=== PATIENT | female | born 1990 | race Caucasian/White ===

== ENCOUNTER 2016-10-31 15:42 | Emergency (ER) | payer MEDICAID, OTHER ==
[~2016-10-31] VITALS: Ht 170.2 cm; Wt 49.9 kg
[~2016-10-31 15:42] MED LIST: CIPR500T89 PO; ZOFR4TAB3 PO
[2016-10-31 15:43] VITALS: BP 106/67
--- NOTE | 2016-10-31 16:22 | ED PDOC ---
Post-Departure Follow-Up PT STATES POSITIVE TEST IN THE LAST WEEK OR SO AND SOON SHE TESTED POSITIVE AT HOME, SHE WENT TO THE ER TO BE SEEN. STATES WAS TOLD AT THAT TIME THAT SHE HAS A UTI. WAS PLACED ON KEFLEX AND DID NOT START TAKING THESE MEDS UNTIL YESTERDAY. STATES STILL HAVING DYSURIA. PRESENTS TO THE ER TODAY STATING SHE WAS BLEEDING WHEN SHE URINATED EARLIER TODAY. PT DENIES PAIN. DOES NOT CURRENTLY HAVE AN OB-ASSEMBLER CONVERTIBLE TOP PROVIDER. STATES, "I'M JUST BEING CAUTIOUS." BALJIT GILLESPIE PA-C Oct 31, 2016 16:22
--- NOTE | 2016-11-01 09:46 | REP ---
FIRST TRIMESTER ULTRASOUND: HISTORY: Bleeding. A single intrauterine is present. Mesick-rump length is 0.2 cm, corresponding to a gestational age of 5 weeks 5 days. heart rate is 97 beats per minute. There is no subchorionic hemorrhage. The adnexa and cul-de-sac are normal in appearance. IMPRESSION: A single intrauterine is present with a gestational age by ultrasound of 5 weeks 5 days. A repeat examination in 19-20 weeks is recommended for further evaluation. Signed by Albert Pappas MD 11/01/2016 10:02 A
== END 2016-10-31 17:03 | disposition home or self-care (01) ==
LOC: M ED 16:11
DX: O20.9 Hemorrhage in early pregnancy, unspecified (principal); O99.341 Other mental disorders complicating pregnancy, first trimester; F41.9 Anxiety disorder, unspecified; Z3A.01 Less than 8 weeks gestation of pregnancy

== ENCOUNTER → 2017-03-01 | Outpatient (CLI) | payer MEDICAID, OTHER ==
[~2017-03-01] MED LIST changes: +CIPR-249 PO; -CIPR500T89 PO
--- NOTE | 2017-03-01 22:00 | REP ---
Clinical: Anatomical evaluation. Comparison: 10/31/2016 . Findings: Examination demonstrates a single live intrauterine in variable presentation. motion is identified by technologist. Placenta is noted posteriorly and grade zero without evidence for placenta previa or abruption. Amniotic fluid volume is normal. Cervix measures 3.4 cm in length and appears closed. No evidence for nuchal cord. Gestational age by LMP 23 weeks 0 day with MAG 06/28/2017 . Gestational age by current measurements 23 weeks 1 day with MAG 06/27/2017 . FHR equals 154 beats per minute. BPD 5.3 cm 22 weeks 1 day HC 21.1 cm 23 weeks 1 day AC 18.9 cm 23 weeks 5 days FL 4.1 cm 23 weeks 1 day HL 3.7 cm 22 weeks 5 days HC/AC ratio 1.11 Estimated weight 592 grams ( 55th percentile). Anatomical assessment demonstrates normal structures including cranium, choroid plexus, cavum, cerebellum/posterior fossa, facial features, lungs, four-chamber heart/right ventricular outflow tract, diaphragm, stomach, cord insertion/three-vessel cord, kidneys/bladder, spine, and extremities. Impression: Single live intrauterine in variable presentation demonstrating appropriate interval growth. Anatomical assessment is essentially complete and normal (limited evaluation of the left cardiac ventricular outflow tract). Signed by Zack Mcnamara MD 03/01/2017 09:50 P
== END ==
LOC: M RAD 13:39
PROVIDERS: ATTEND Advanced Practice Midwife
DX: Z36 Encounter for antenatal screening of mother (principal); Z3A.23 23 weeks gestation of pregnancy

== ENCOUNTER → 2017-04-27 | Outpatient (CLI) | payer OTHER ==
--- NOTE | 2017-04-27 17:36 | REP ---
OB ULTRASOUND: Real-time sonographic evaluation of the gravid uterus is performed. There is a single living intrauterine gestation. The estimated gestational age is 31 weeks 1 day. EDC 06/28/2017. Today's measurements indicate appropriate growth. BPD 75 mm = 30 weeks 1 days, at the 35th percentile. HC 287 mm = 31 weeks 4 days, at the 57th percentile. AC 270 mm = 31 weeks 1 day, at the 50th percentile. Femur length 57 mm = 29 weeks 6 days, at the 24th percentile. HC/AC ratio 1.06 within normal range. Estimated weight 1619 grams, 34th percentile. Cervix is closed and measures 3.9 cm in length. heart rate 139 beats per minute. Amniotic fluid within normal limits. MAICO 12.0 within normal range of 8.8-23.8. SD ratio 3.71, slightly above normal range of 2.5 to 3.5. RI 0.73 within normal range. Visualized anatomy includes lateral ventricle, posterior fossa, upper lip, stomach, cord insertion, three-vessel cord, kidneys, and bladder which are grossly unremarkable. position is breach. Placenta is posterior and fundal and grade 2 with no previa or abruption. Signed by David Payne MD 04/28/2017 04:39 P
== END ==
LOC: M RAD 15:44
PROVIDERS: ATTEND Advanced Practice Midwife
DX: Z36.9 Encounter for antenatal screening, unspecified (principal); Z3A.31 31 weeks gestation of pregnancy

== ENCOUNTER 2017-05-24 04:07 | Inpatient (IN) | payer OTHER ==
[~2017-05-24] VITALS: Ht 170.2 cm; Wt 61.5 kg
[2017-05-24] VITALS (19 sets, daily range): BP systolic 99–134; BP diastolic 57–80
[2017-05-24] MEDS ORDERED: PRENTAB9 PO (04:31)
[2017-05-24 08:40] LABS: MEAN CORPUSCULAR HEMOGLOBIN 32.3 pg (27.0-33.0); MEAN CORPUSCULAR HGB CONC 34.3 g/dl (32.0-36.5); MEAN CORPUSCULAR VOLUME 94.3 fl (80.0-96.0); PLATELET COUNT, AUTOMATED 171 10^3/uL (150-450); RED CELL DISTRIBUTION WIDTH 13.2 % (11.5-14.5); WHITE BLOOD COUNT 11.2 10^3/uL (4.0-10.0)
[2017-05-24] MEDS: PRENATAL VITAMINS CHEWABLE TABLET PO SCH (09:00)
[2017-05-24 10:14] LABS: INR 1.01
[2017-05-24] MEDS ORDERED: ONDANSETRON 4MG/2ML VIAL (J2405) IV SCH (10:15)
[2017-05-24] MEDS ORDERED: PENICILLIN G POTASSIUM IV 5 MU in D5W MINI-BAG PLUS 100 ML IV STA (10:15)
[2017-05-24] MEDS ORDERED: LACTATED RINGER'S 1000 ML IV STA (10:15)
[2017-05-24] MEDS ORDERED: FENTANYL 2MCG/ML ROPIVACAINE 0.2% IN 0.9% NACL 200ML IVBAG As Ordered ONE (11:31)
[2017-05-24] MEDS ORDERED: OXYTOCIN 30 UNITS IN 0.9% NaCl 500ML IV BAG (J2590) As Ordered ONE (11:37)
[2017-05-24] MEDS ORDERED: OXYTOCIN DRIP 30 UNITS in APPROPRIATE DILUENT 1 EA IV SCH (12:31)
[2017-05-24] MEDS ORDERED: DIBUCAINE 1% OINTMENT 30GM TOP PRN (12:45)
[2017-05-24] MEDS ORDERED: RHOGAM 300 MCG (1500 IU) INJ (J2790) IM SCH (12:45)
[2017-05-24] MEDS ORDERED: ONDANSETRON 4MG/2ML VIAL (J2405) IV PRN (12:45)
[2017-05-24] MEDS ORDERED: MEASLES,MUMPS,RUBELLA VACCINE INJ (MMR-II) (90707) SC SCH (12:45)
[2017-05-24] MEDS ORDERED: PROMETHAZINE 25 MG TAB PO PRN (12:45)
[2017-05-24] MEDS ORDERED: DOCUSATE SODIUM 100 MG CAP PO PRN (12:45)
[2017-05-24] MEDS ORDERED: ACETAMINOPHEN 500 MG TAB PO PRN (12:45)
[2017-05-24 12:48] LABS: CORD GAS ABE A -4.9; CORD GAS ABE V -4.2; CORD GAS HCO3 A 20.2 MEQ/L; CORD GAS HCO3 V 20.6 MEQ/L; CORD GAS O2 SAT A 67.6 %; CORD GAS O2 SAT V 58.3 %; CORD GAS PCO2 A 38.3 mmHg; CORD GAS PCO2 V 37.1 mmHg; CORD GAS PH A 7.341 UNITS; CORD GAS PH V 7.362 UNITS; CORD GAS PO2 A 26.4 mmHg; CORD GAS PO2 V 21.8 mmHg; CORD GAS SBC A 19.7 MEQ/L; CORD GAS SBC V 20.1 MEQ/L; CORD GAS TCO2 A 21.4 MEQ/L; CORD GAS TCO2 V 21.7 MEQ/L
[2017-05-24] MEDS ORDERED: PENICILLIN G POTASSIUM IV 2.5 MU in APPROPRIATE DILUENT 1 EA IV SCH (14:30)
[2017-05-24] MEDS: IBUPROFEN 800 MG TAB PO PRN (19:59)
[2017-05-25 06:00] VITALS: BP 86/50
[2017-05-25] MEDS: PRENATAL VITAMINS CHEWABLE TABLET PO SCH (09:30)
[2017-05-25] MEDS: IBUPROFEN 800 MG TAB PO PRN (09:33)
[2017-05-25 09:46] VITALS: BP 108/69
[2017-05-25 18:13] VITALS: BP 115/67
[2017-05-26] MEDS: PRENATAL VITAMINS CHEWABLE TABLET PO SCH (08:23)
[2017-05-26] MEDS ORDERED: ACET50TA PO (11:38)
[2017-05-26] MEDS ORDERED: IBUP-1114 PO (11:38)
== END 2017-05-26 17:10 | disposition home or self-care (01) | DRG 560 ==
LOC: M LDO 04:07 → M LDI 10:17 → M OBS 14:00
PROVIDERS: ADMIT Obstetrics & Gynecology; ATTEND Obstetrics & Gynecology
PROC: 10E0XZZ Delivery of Products of Conception, External Approach (ICD-10-PCS; principal; 2017-05-24)
DX: O60.14X0 Preterm labor third trimester with preterm delivery third trimester, not applicable or unspecified (principal); F17.210 Nicotine dependence, cigarettes, uncomplicated; Z37.0 Single live birth; Z3A.35 35 weeks gestation of pregnancy; O99.334 Smoking (tobacco) complicating childbirth

== ENCOUNTER 2017-08-30 15:07 | Outpatient (RCR) | payer OTHER | END 2017-09-01 | LOC: M PT 15:07 | DX: Z51.89 Encounter for other specified aftercare (principal); M26.609 Unspecified temporomandibular joint disorder, unspecified side | CPT/HCPCS: 97162 ==

== ENCOUNTER → 2017-08-30 | Outpatient (CLI) | payer MEDICAID | LOC: M OUTALCOH 10:32 | DX: Z03.89 Encounter for observation for other suspected diseases and conditions ruled out (principal) ==

== ENCOUNTER 2017-09-09 13:03 | Outpatient (RCR) | payer MEDICAID | END 2017-10-02 | LOC: M OUTALCOH 09-15 14:30 | DX: F12.10 Cannabis abuse, uncomplicated (principal); F17.200 Nicotine dependence, unspecified, uncomplicated ==

== ENCOUNTER 2017-10-05 16:00 | Outpatient (RCR) | payer MEDICAID | END 2017-11-01 | LOC: M OUTALCOH 10-08 14:00 | DX: F12.10 Cannabis abuse, uncomplicated (principal); F17.200 Nicotine dependence, unspecified, uncomplicated ==

== ENCOUNTER 2017-11-02 16:12 | Outpatient (RCR) | payer MEDICAID | END 2017-12-02 | LOC: M OUTALCOH 16:12 | DX: F12.10 Cannabis abuse, uncomplicated (principal); F17.200 Nicotine dependence, unspecified, uncomplicated ==

== ENCOUNTER 2017-12-08 09:41 | Emergency (ER) | payer OTHER, MEDICAID ==
[2017-12-08] MEDS: NS 1,000 ML IV (10:41)
[2017-12-08] MEDS: METOCLOPRAMIDE INJ 10MG/2ML VIAL (J2765) IV (10:41)
[2017-12-08] MEDS: diphenhydrAMINE INJ 50MG/ML VIAL (J1200) IV (10:41)
[2017-12-08] MEDS: KETOROLAC 30 MG/ML VIAL (J1885) IV (10:41)
[2017-12-08] MEDS: ADACEL/BOOSTRIX VACCINE (DIPHTH/PERTUSS/ACELL/TETANUS)0.5ML SYR (90715) IM (10:43)
== END 2017-12-08 11:38 | disposition home or self-care (01) ==
LOC: M ED 09:41
DX: S01.01XA Laceration without foreign body of scalp, initial encounter (principal); S06.0X1A Concussion with loss of consciousness of 30 minutes or less, initial encounter; G43.909 Migraine, unspecified, not intractable, without status migrainosus; W22.8XXA Striking against or struck by other objects, initial encounter; Y92.099 Unspecified place in other non-institutional residence as the place of occurrence of the external cause; Y93.9 Activity, unspecified; Y99.9 Unspecified external cause status; Z79.899 Other long term (current) drug therapy
CPT/HCPCS: J1200

== ENCOUNTER 2017-12-22 15:24 | Outpatient (RCR) | payer MEDICAID | END 2018-01-01 | LOC: M OUTALCOH 15:24 | DX: F12.10 Cannabis abuse, uncomplicated (principal); F17.200 Nicotine dependence, unspecified, uncomplicated ==

== ENCOUNTER → 2017-12-24 | Outpatient (CLI) | payer MEDICAID | LOC: M WUC 16:51 | DX: M79.671 Pain in right foot (principal) | CPT/HCPCS: 73620 ==

== ENCOUNTER 2018-01-18 16:00 | Outpatient (RCR) | payer MEDICAID | END 2018-02-01 | LOC: M OUTALCOH 16:00 | DX: F12.10 Cannabis abuse, uncomplicated (principal); F17.200 Nicotine dependence, unspecified, uncomplicated ==

== ENCOUNTER 2018-08-04 09:22 | Emergency (ER) | payer MEDICAID, OTHER ==
[~2018-08-04] VITALS: Ht 170.2 cm; Wt 51.8 kg
[2018-08-04 09:22] VITALS: BP 116/79
[~2018-08-04 09:22] MED LIST changes: +IBUP-1114 PO; +MAPA500T2 PO; +PRENTAB9 PO; +PREVTAB2; +SERT25TA88; +ZOFR4TAB14 PO; -ZOFR4TAB3 PO
--- NOTE | 2018-08-04 10:06 | REP ---
Clinical: Trauma. Technique: Frontal view of the chest with four views of the right hemithorax. Findings: Frontal view of the chest demonstrates no acute cardiopulmonary process. Multiple views of the right hemithorax demonstrates no obvious acute rib fracture or pathology. Impression: Normal right rib series. No obvious right rib fracture identified. Electronically Signed by Zack Mcnamara MD 08/04/2018 09:58 A
[2018-08-04] MEDS ORDERED: IBUPROFEN 800 MG TAB PO ONE (10:15)
[2018-08-04] MEDS ORDERED: IBUP-1022 PO (10:19)
== END 2018-08-04 10:27 | disposition home or self-care (01) ==
LOC: M ED 09:22
DX: S20.211A Contusion of right front wall of thorax, initial encounter (principal); W00.0XXA Fall on same level due to ice and snow, initial encounter; Y92.410 Unspecified street and highway as the place of occurrence of the external cause; F33.9 Major depressive disorder, recurrent, unspecified; F41.9 Anxiety disorder, unspecified; K21.9 Gastro-esophageal reflux disease without esophagitis; G43.909 Migraine, unspecified, not intractable, without status migrainosus; F17.210 Nicotine dependence, cigarettes, uncomplicated

== ENCOUNTER 2018-09-07 16:14 | Emergency (ER) | payer OTHER ==
[~2018-09-07] VITALS: Ht 170.2 cm; Wt 50.0 kg
[~2018-09-07 16:14] MED LIST changes: +IBUP-1022 PO
[2018-09-07] MEDS ORDERED: SERT50TA PO (16:34)
[2018-09-07 16:47] LABS: ABG HCO3 13.1 MEQ/L (22.0-26.0); ABG O2 SATURATION 99.1 % (95.0-99.0); ABG PARTIAL PRESSURE O2 123.5 mmHg (75.0-100.0); ABG STANDARD HCO3 21.2 MEQ/L (22.0-26.0); ABG TOTAL CO2 13.5 MEQ/L (22.0-29.0)
[2018-09-07 16:51] LABS: ABG PARTIAL PRESSURE CO2 13.2 mmHg (35.0-45.0); ABG pH (ARTERIAL) 7.615 UNITS (7.350-7.450)
[2018-09-07] MEDS ORDERED: LORazepam 2 MG/ML VIAL (J2060) IV STA (16:53)
[2018-09-07 17:22] LABS: BASO % 0.2 % (0.0-1.0); HEMATOCRIT 44.2 % (36.0-47.0); HEMOGLOBIN 15.2 g/dl (12.0-15.5); LYMPH # 0.8 10^3/uL (1.5-6.5); LYMPH % 7.7 % (24.0-44.0); MEAN CORPUSCULAR HEMOGLOBIN 31.7 pg (27.0-33.0); MEAN CORPUSCULAR HGB CONC 34.4 g/dl (32.0-36.5); MEAN CORPUSCULAR VOLUME 92.3 fl (80.0-96.0); MONO # 0.3 10^3/uL (0.0-0.8); MONO % 2.5 % (0.0-5.0); NEUTROPHILS # 8.8 10^3/uL (1.8-7.7); NEUTROPHILS % 89.4 % (36.0-66.0); PLATELET COUNT, AUTOMATED 202 10^3/uL (150-450); RED BLOOD COUNT 4.79 10^6/uL (4.00-5.40); WHITE BLOOD COUNT 9.8 10^3/uL (4.0-10.0)
[2018-09-07 17:43] LABS: HCG, SERUM QUALITATIVE NEGATIVE (NEGATIVE)
[2018-09-07 17:46] LABS: ALBUMIN 4.6 GM/DL (3.2-5.2); ALT/SGPT 22 U/L (12-78); BILIRUBIN,DIRECT 0.3 MG/DL (0.0-0.2); BILIRUBIN,TOTAL 1.3 MG/DL (0.2-1.0); BLOOD UREA NITROGEN 21 MG/DL (7-18); CARBON DIOXIDE LEVEL 22 MEQ/L (21-32); CHLORIDE LEVEL 103 MEQ/L (98-107); CREATININE FOR GFR 0.92 MG/DL (0.55-1.30); GLOMERULAR FILTRATION RATE > 60.0 (>60); GLUCOSE, FASTING 96 MG/DL (70-100); LIPASE 58 U/L (73-393); MAGNESIUM LEVEL 1.6 MG/DL (1.8-2.4); POTASSIUM SERUM 3.5 MEQ/L (3.5-5.1); SODIUM LEVEL 136 MEQ/L (136-145); TOTAL PROTEIN 8.7 GM/DL (6.4-8.2)
[2018-09-07] MEDS ORDERED: NS 1,000 ML IV ONE (18:30)
[2018-09-07] MEDS ORDERED: MAG SULF 1GM/100ML (MAG RUN) 1 GM in APPROPRIATE DILUENT 1 EA IV ONE (18:30)
--- NOTE | 2018-09-07 20:54 | ECGEPIP ---
Stationary ECG Study [facility] - ED Test Date: 2018-09-07 Pat Name: CORBIN BRICEÑO Department: Room: - Gender: F Final Inspector: TC : 1990 Requested By: Mary Anne Yeager Order Number: [id number] Reading MD: Davion Rodarte Measurements Intervals [place] Rate: 63 P: 24 OR: 123 QRS: 84 QRSD: 84 T: 70 QT: 460 QTc: 472 Interpretive Statements SINUS RHYTHM WITH SINUS ARRHYTHMIA Nonspecific ST-T wave abnormalities Similar to tracing done 10-01-15 Electronically Signed On 09-07-2018 20:53:56 EST by Davion Rodarte
[2018-09-07 23:18] LABS: AMPHETAMINES LEVEL URINE NEGATIVE (NEGATIVE); BARBITURATES URINE NEGATIVE (NEGATIVE); BENZODIAZEPINES URINE NEGATIVE (NEGATIVE); CANNABINOIDS URINE POSITIVE (NEGATIVE); COCAINE METABOLITE URINE NEGATIVE (NEGATIVE); METHADONE URINE NEGATIVE (NEGATIVE); OPIATES URINE NEGATIVE (NEGATIVE); PHENCYCLIDINE URINE NEGATIVE (NEGATIVE)
[2018-09-07 23:42] VITALS: BP 113/67
== END 2018-09-07 23:51 | disposition home or self-care (01) ==
LOC: EDBD 16:14 → M ED 16:14
DX: R06.4 Hyperventilation (principal); F12.10 Cannabis abuse, uncomplicated; K21.9 Gastro-esophageal reflux disease without esophagitis; F41.0 Panic disorder [episodic paroxysmal anxiety]; Z87.891 Personal history of nicotine dependence
CPT/HCPCS: 80048; 80076; 80307; 82803; 83690; 83735; 84703; 85025; 93005; 93041; 96374; 96375; 99285; J2060; J3475

== ENCOUNTER 2018-10-25 10:14 | Emergency (ER) | payer OTHER ==
[~2018-10-25] VITALS: Ht 170.2 cm; Wt 50.9 kg
[2018-10-25 10:14] VITALS: BP 97/62
[~2018-10-25 10:14] MED LIST changes: +SERT-141 PO
[2018-10-25] MEDS ORDERED: METOCLOPRAMIDE INJ 10MG/2ML VIAL (J2765) IV ONE (11:00)
[2018-10-25] MEDS ORDERED: NS 1,000 ML IV ONE (11:00)
[2018-10-25 11:33] LABS: BASO # 0.1 10^3/uL (0.0-0.2); BASO % 0.7 % (0.0-1.0); EOS % 0.6 % (0.0-3.0); HEMATOCRIT 41.9 % (36.0-47.0); HEMOGLOBIN 14.2 g/dl (12.0-15.5); LYMPH # 1.8 10^3/uL (1.5-6.5); LYMPH % 26.7 % (24.0-44.0); MEAN CORPUSCULAR HEMOGLOBIN 32.3 pg (27.0-33.0); MEAN CORPUSCULAR HGB CONC 33.9 g/dl (32.0-36.5); MEAN CORPUSCULAR VOLUME 95.4 fl (80.0-96.0); MONO # 0.3 10^3/uL (0.0-0.8); NEUTROPHILS # 4.5 10^3/uL (1.8-7.7); NEUTROPHILS % 66.6 % (36.0-66.0); PLATELET COUNT, AUTOMATED 188 10^3/uL (150-450); RED BLOOD COUNT 4.39 10^6/uL (4.00-5.40); WHITE BLOOD COUNT 6.8 10^3/uL (4.0-10.0)
[2018-10-25 12:24] LABS: ALT/SGPT 20 U/L (12-78); BILIRUBIN,TOTAL 0.8 MG/DL (0.2-1.0); BLOOD UREA NITROGEN 12 MG/DL (7-18); CALCIUM LEVEL 8.9 MG/DL (8.5-10.1); CARBON DIOXIDE LEVEL 27 MEQ/L (21-32); CHLORIDE LEVEL 102 MEQ/L (98-107); CREATININE FOR GFR 0.62 MG/DL (0.55-1.30); GLOMERULAR FILTRATION RATE > 60.0 (>60); GLUCOSE, FASTING 80 MG/DL (70-100); HCG, SERUM QUANTITATIVE 32362 MIU/ML; LIPASE 66 U/L (73-393); POTASSIUM SERUM 4.3 MEQ/L (3.5-5.1); SODIUM LEVEL 137 MEQ/L (136-145); TOTAL PROTEIN 7.5 GM/DL (6.4-8.2)
== END 2018-10-25 12:15 | disposition left against medical advice (07) ==
LOC: M ED 10:14
DX: O21.9 Vomiting of pregnancy, unspecified (principal); O99.330 Smoking (tobacco) complicating pregnancy, unspecified trimester; F17.210 Nicotine dependence, cigarettes, uncomplicated; Z3A.00 Weeks of gestation of pregnancy not specified
CPT/HCPCS: 80053; 83690; 84702; 85025; 86850; 86900; 86901; 96374; 99283; J2765

== ENCOUNTER 2018-11-07 19:22 | Emergency (ER) | payer OTHER ==
[~2018-11-07] VITALS: Ht 170.2 cm; Wt 60.4 kg
[2018-11-07] MEDS ORDERED: NS 1,000 ML IV ONE ×2 (21:15→22:30)
[2018-11-07 21:25] LABS: BASO # 0.1 10^3/uL (0.0-0.2); BASO % 0.4 % (0.0-1.0); EOS % 0.1 % (0.0-3.0); LYMPH # 1.7 10^3/uL (1.5-6.5); LYMPH % 15.2 % (24.0-44.0); MEAN CORPUSCULAR HEMOGLOBIN 32.1 pg (27.0-33.0); MEAN CORPUSCULAR HGB CONC 34.1 g/dl (32.0-36.5); MONO # 0.4 10^3/uL (0.0-0.8); MONO % 3.9 % (0.0-5.0); NEUTROPHILS # 9.1 10^3/uL (1.8-7.7); PLATELET COUNT, AUTOMATED 209 10^3/uL (150-450); RED BLOOD COUNT 4.36 10^6/uL (4.00-5.40); WHITE BLOOD COUNT 11.3 10^3/uL (4.0-10.0)
[2018-11-07 21:30] LABS: AMPHETAMINES LEVEL URINE NEGATIVE (NEGATIVE); BARBITURATES URINE NEGATIVE (NEGATIVE); BENZODIAZEPINES URINE NEGATIVE (NEGATIVE); CANNABINOIDS URINE POSITIVE (NEGATIVE); COCAINE METABOLITE URINE NEGATIVE (NEGATIVE); METHADONE URINE NEGATIVE (NEGATIVE); OPIATES URINE NEGATIVE (NEGATIVE); PHENCYCLIDINE URINE NEGATIVE (NEGATIVE)
[2018-11-07 22:04] LABS: BLOOD UREA NITROGEN 11 MG/DL (7-18); CALCIUM LEVEL 9.2 MG/DL (8.5-10.1); CARBON DIOXIDE LEVEL 25 MEQ/L (21-32); CHLORIDE LEVEL 104 MEQ/L (98-107); CPK CREATINE PHOSPHOKINASE 68 U/L (26-192); CREATININE FOR GFR 0.62 MG/DL (0.55-1.30); ETHYL ALCOHOL (ETHANOL) < 0.003 % (0.000-0.010); GLOMERULAR FILTRATION RATE > 60.0 (>60); GLUCOSE, FASTING 85 MG/DL (70-100); HCG, SERUM QUANTITATIVE 121111 MIU/ML; MB/CK RELATIVE INDEX 3.38 (< OR =4); POTASSIUM SERUM 3.8 MEQ/L (3.5-5.1); SODIUM LEVEL 137 MEQ/L (136-145); THYROID STIMULATING HORMONE 0.237 uIU/ML (0.358-3.740); TROPONIN I < 0.02 NG/ML (< 0.10)
--- NOTE | 2018-11-07 22:20 | ECGEPIP ---
Stationary ECG Study [facility] - ED Test Date: 2018-11-07 Pat Name: CORBIN BRICEÑO Department: Room: - Gender: F Quality Process Lead: MAXWELL : 1990 Requested By: CLARISSA DOUGLASS [facility] Order Number: [id number] Reading MD: Parish Alanis Measurements Intervals [place] Rate: 58 P: 44 KS: 121 QRS: 78 QRSD: 90 T: 3 QT: 417 QTc: 411 Interpretive Statements SINUS BRADYCARDIA WITH MARKED SINUS ARRHYTHMIA INCOMPLETE RIGHT BUNDLE BRANCH BLOCK NONSPECIFIC ST & T-WAVE ABNORMALITY SIMILAR TO 09/07/18 Electronically Signed On 11-07-2018 22:19:57 EDT by Parish Alanis
[2018-11-07] MEDS ORDERED: LACTULOSE 20 GM/30 ML SYRUP UD PO ONE (22:30)
[2018-11-07] MEDS ORDERED: PYRIDOXINE 50 MG TAB PO ONE (22:45)
[2018-11-08] MEDS ORDERED: FLEET ENEMA PR ONE (00:45)
[2018-11-08] MEDS ORDERED: ALBUTEROL SULFATE 2.5 MG/0.5 ML INH NEB SOLN NEB ONE (00:45)
[2018-11-08] MEDS ORDERED: AUGMENTIN 875 MG TAB PO ONE (00:45)
[2018-11-08] MEDS ORDERED: ACETAMINOPHEN 500 MG TAB PO ONE (00:45)
[2018-11-08 01:03] VITALS: BP 99/51
[2018-11-08] MEDS ORDERED: DICL10TA PO (01:18)
[2018-11-08] MEDS ORDERED: MIRA3350 PO (01:18)
[2018-11-08] MEDS ORDERED: STOO100C PO (01:18)
== END 2018-11-08 01:28 | disposition home or self-care (01) ==
LOC: M ED 19:22
DX: O99.351 Diseases of the nervous system complicating pregnancy, first trimester (principal); R55 Syncope and collapse; O99.611 Diseases of the digestive system complicating pregnancy, first trimester; K59.00 Constipation, unspecified; O21.9 Vomiting of pregnancy, unspecified; O99.321 Drug use complicating pregnancy, first trimester; F12.10 Cannabis abuse, uncomplicated; Z3A.01 Less than 8 weeks gestation of pregnancy
CPT/HCPCS: 36415; 80048; 80307; 82550; 82553; 84443; 84702; 85025; 93005; 99284; G0480

== ENCOUNTER 2018-11-15 07:33 | Emergency (ER) | payer OTHER ==
[~2018-11-15] VITALS: Ht 170.2 cm; Wt 50.0 kg
[~2018-11-15 07:33] MED LIST changes: +DICL10TA PO; +MIRA3350 PO; +STOO100C PO
[2018-11-15] MEDS ORDERED: NS 1,000 ML IV ONE (07:45)
[2018-11-15] MEDS ORDERED: METOCLOPRAMIDE INJ 10MG/2ML VIAL (J2765) IV ONE (07:45)
[2018-11-15 08:11] LABS: BASO # 0.1 10^3/uL (0.0-0.2); BASO % 0.3 % (0.0-1.0); HEMATOCRIT 46.2 % (36.0-47.0); HEMOGLOBIN 15.8 g/dl (12.0-15.5); LYMPH # 1.7 10^3/uL (1.5-6.5); LYMPH % 11.2 % (24.0-44.0); MEAN CORPUSCULAR HEMOGLOBIN 32.7 pg (27.0-33.0); MEAN CORPUSCULAR HGB CONC 34.2 g/dl (32.0-36.5); MEAN CORPUSCULAR VOLUME 95.7 fl (80.0-96.0); MONO # 0.6 10^3/uL (0.0-0.8); MONO % 3.6 % (0.0-5.0); NEUTROPHILS # 12.8 10^3/uL (1.8-7.7); NEUTROPHILS % 84.2 % (36.0-66.0); PLATELET COUNT, AUTOMATED 267 10^3/uL (150-450); RED BLOOD COUNT 4.83 10^6/uL (4.00-5.40); WHITE BLOOD COUNT 15.2 10^3/uL (4.0-10.0)
[2018-11-15 08:36] LABS: AMYLASE 45 U/L (25-115); LIPASE 56 U/L (73-393)
[2018-11-15 08:54] LABS: ALBUMIN 4.5 GM/DL (3.2-5.2); ALT/SGPT 30 U/L (12-78); BILIRUBIN,TOTAL 0.9 MG/DL (0.2-1.0); BLOOD UREA NITROGEN 19 MG/DL (7-18); CALCIUM LEVEL 10.4 MG/DL (8.5-10.1); CARBON DIOXIDE LEVEL 24 MEQ/L (21-32); CHLORIDE LEVEL 97 MEQ/L (98-107); CREATININE FOR GFR 1.09 MG/DL (0.55-1.30); GLOMERULAR FILTRATION RATE > 60.0 (>60); GLUCOSE, FASTING 149 MG/DL (70-100); HCG, SERUM QUANTITATIVE 143833 MIU/ML; SODIUM LEVEL 137 MEQ/L (136-145); TOTAL PROTEIN 8.4 GM/DL (6.4-8.2)
--- NOTE | 2018-11-15 09:17 | REP ---
Emergency first trimester obstetric sonography: History: Abdominal pain in , vomiting. Findings: Transabdominal scanning demonstrates a living intrauterine gestation in a free-floating lie. Embryonic pole measures 35 mm. This corresponds to a 36-gatj-6-day gestational age estimate. heart rate is recorded at 192 beats per minute. There is a 1.6 x 0.7 x 0.7 cm subchorionic fluid collection along the left side of the gestational sac. No extrauterine abnormality is observed. No gross anomaly is seen. Impression: Viable single intrauterine gestation at 10 weeks 3 days by crown-rump length. MAG by sonography June 10, 2019. heart rate is higher than is typical at this stage at 192 beats per minute. There is a small subchorionic hemorrhage. Electronically Signed by Ruben Gibbons MD 11/15/2018 05:15 P
[2018-11-15] MEDS ORDERED: REGL10TA6 PO (09:59)
[2018-11-15] MEDS ORDERED: MACR100C43 PO (10:08)
[2018-11-15 10:11] VITALS: BP 122/57
[2018-11-15] MEDS ORDERED: NITROFURANTOIN (MACROBID) 100 MG CAP PO ONE (10:15)
== END 2018-11-15 10:17 | disposition home or self-care (01) ==
LOC: M ED 07:33
DX: O21.0 Mild hyperemesis gravidarum (principal); Z3A.10 10 weeks gestation of pregnancy
CPT/HCPCS: 76801; 80053; 82150; 83690; 84702; 85025; 86850; 86900; 86901; 87086; 87880; 96374; 99284; J2765

== ENCOUNTER → 2018-11-16 | Outpatient (CLI) | payer OTHER ==
[~2018-11-16] MED LIST changes: +MACR100C43 PO; +REGL10TA6 PO
[2018-11-16 17:32] LABS: BASO % 0.2 % (0.0-1.0); EOS % 0.1 % (0.0-3.0); HEMOGLOBIN 15.1 g/dl (12.0-15.5); LYMPH # 1.6 10^3/uL (1.5-6.5); LYMPH % 13.3 % (24.0-44.0); MEAN CORPUSCULAR HGB CONC 33.6 g/dl (32.0-36.5); MEAN CORPUSCULAR VOLUME 98.3 fl (80.0-96.0); MONO # 0.8 10^3/uL (0.0-0.8); MONO % 6.3 % (0.0-5.0); NEUTROPHILS # 9.8 10^3/uL (1.8-7.7); NEUTROPHILS % 79.7 % (36.0-66.0); PLATELET COUNT, AUTOMATED 219 10^3/uL (150-450); RED BLOOD COUNT 4.58 10^6/uL (4.00-5.40); WHITE BLOOD COUNT 12.3 10^3/uL (4.0-10.0)
[2018-11-16 17:44] LABS: FREE T4 1.74 NG/DL (0.76-1.46); THYROID STIMULATING HORMONE 0.069 uIU/ML (0.358-3.740)
[2018-11-16 17:57] LABS: RUBELLA IgG QUALITATIVE IMMUNE (IMMUNE)
[2018-11-16 18:25] LABS: HIV 1&2 SCREEN CENTAUR NEGATIVE (NEGATIVE)
[2018-11-16 19:01] LABS: CHLAMYDIA DNA AMPLIFICATION NEGATIVE (NEGATIVE); GC DNA AMPLIFICATION NEGATIVE (NEGATIVE)
== END ==
LOC: M SMT 11:03
PROVIDERS: ATTEND Advanced Practice Midwife
DX: Z34.81 Encounter for supervision of other normal pregnancy, first trimester (principal); Z3A.00 Weeks of gestation of pregnancy not specified

== ENCOUNTER → 2018-11-22 | Outpatient (CLI) | payer OTHER ==
[2018-11-22 10:59] LABS: FREE T3 2.8 PG/ML (2.2-4.0); THYROXINE (T4) 11.7 UG/DL (4.5-12.0); TOTAL T3 131.5 NG/DL (60.0-181.0)
[2018-11-23 09:31] LABS: THYROID PEROXIDASE ANTIBODY 37.2 U/ML (<60.0)
== END ==
LOC: M LAB 09:39
PROVIDERS: ATTEND Advanced Practice Midwife
DX: O21.0 Mild hyperemesis gravidarum (principal); E05.90 Thyrotoxicosis, unspecified without thyrotoxic crisis or storm; Z3A.00 Weeks of gestation of pregnancy not specified

== ENCOUNTER → 2019-01-09 | Outpatient (CLI) | payer OTHER ==
[~2019-01-09] MED LIST changes: +MM S100C PO; -STOO100C PO
[2019-01-09 09:01] LABS: FREE T3 2.6 PG/ML (2.2-4.0); FREE T4 0.86 NG/DL (0.76-1.46); THYROID STIMULATING HORMONE 1.27 uIU/ML (0.358-3.740); THYROXINE (T4) 14.1 UG/DL (4.5-12.0)
--- NOTE | 2019-01-09 22:52 | REP ---
Clinical: Anatomical evaluation. Comparison: 11/15/2018 . Findings: Examination demonstrates a single live intrauterine in cephalic presentation. motion is identified by technologist. Placenta is noted anterior and grade is zero without evidence for placenta previa or abruption. Amniotic fluid volume is normal. Cervix measures 4.5 cm in length and appears closed. No evidence for nuchal cord. Gestational age by first US 18 weeks 2 days with MAG 06/10/2019 . Gestational age by current measurements 18 weeks 1 day with MAG 06/11/2019 . FHR equals 146 beats per minute. BPD 4.1 cm 18 weeks 4 days HC 15.1 cm 18 weeks 1 day AC 14.0 cm 19 weeks 3 days FL 2.5 cm 17 weeks 3 days HL 2.4 cm 17 weeks 3 days HC/AC ratio 1.07 Estimated weight 241 grams ( 54th percentile). Anatomical assessment demonstrates normal structures including cranium, choroid plexus, cavum, cerebellum/posterior fossa, facial features, lungs, four-chamber heart/ventricular outflow tracts, diaphragm, stomach, cord insertion/three-vessel cord, kidneys/bladder, and extremities. Impression: Single live intrauterine demonstrating appropriate interval growth. Limited evaluation of the spine. Remainder of the anatomical assessment is complete and normal. Electronically Signed by Zack Mcnamara MD 01/09/2019 10:43 P
== END ==
LOC: M RAD 07:03
PROVIDERS: ATTEND Advanced Practice Midwife
DX: Z36.89 Encounter for other specified antenatal screening (principal); O21.0 Mild hyperemesis gravidarum; O99.282 Endocrine, nutritional and metabolic diseases complicating pregnancy, second trimester; Z3A.18 18 weeks gestation of pregnancy

== ENCOUNTER → 2019-01-26 | Outpatient (CLI) | payer OTHER ==
--- NOTE | 2019-01-27 09:42 | REP ---
Clinical: Anatomical evaluation. Comparison: 01/09/2019 . Findings: Examination demonstrates a single live intrauterine in cephalic presentation. motion is identified by technologist. Placenta is noted anterior and grade zero without evidence for placenta previa or abruption. Amniotic fluid volume is normal. Cervix measures 3.8 cm in length and appears closed. No evidence for nuchal cord. Gestational age by first US 20 weeks 5 days with MAG 06/10/2019 . Gestational age by current measurements 20 weeks 6 days with MAG 06/09/2019 . FHR equals 163 beats per minute. Estimated weight 397 grams ( 59th percentile). Anatomical assessment demonstrates normal structures including cranium, choroid plexus, cavum, cerebellum/posterior fossa, facial features, lungs, four-chamber heart/ventricular outflow tracts, diaphragm, stomach, cord insertion/three-vessel cord, kidneys/bladder, spine, and extremities. Impression: single live intrauterine in cephalic presentation demonstrating appropriate interval growth. Anatomical assessment is complete and normal. Electronically Signed by Zack Mcnamara MD 01/27/2019 09:34 A
== END ==
LOC: M RAD 12:23
PROVIDERS: ATTEND Advanced Practice Midwife
DX: Z34.82 Encounter for supervision of other normal pregnancy, second trimester (principal); Z36.9 Encounter for antenatal screening, unspecified; Z3A.20 20 weeks gestation of pregnancy

== ENCOUNTER → 2019-03-27 | Outpatient (CLI) | payer OTHER ==
[2019-03-27 11:44] LABS: HEMATOCRIT 39.2 % (36.0-47.0); HEMOGLOBIN 12.7 g/dl (12.0-15.5); MEAN CORPUSCULAR HEMOGLOBIN 32.7 pg (27.0-33.0); MEAN CORPUSCULAR HGB CONC 32.4 g/dl (32.0-36.5); PLATELET COUNT, AUTOMATED 197 10^3/uL (150-450); RED BLOOD COUNT 3.88 10^6/uL (4.00-5.40); WHITE BLOOD COUNT 10.4 10^3/uL (4.0-10.0)
[2019-03-27 12:14] LABS: FREE T4 0.96 NG/DL (0.76-1.46); THYROID STIMULATING HORMONE 0.66 uIU/ML (0.358-3.740)
== END ==
LOC: M SMT 09:03
PROVIDERS: ATTEND Obstetrics & Gynecology
DX: Z34.83 Encounter for supervision of other normal pregnancy, third trimester (principal); Z3A.00 Weeks of gestation of pregnancy not specified

== ENCOUNTER → 2019-03-30 | Outpatient (CLI) | payer OTHER ==
[~2019-03-30] MED LIST changes: +EXCETAB33 PO; +IBUP1TAB7 PO; +PERC7.5T11 PO; +SERT25TA21; -SERT25TA88
--- NOTE | 2019-03-31 03:00 | REP ---
Clinical: Growth evaluation. Comparison: 01/26/2019 . Findings: Examination demonstrates a single live intrauterine in breech presentation. motion is identified by technologist. Placenta is noted anterior and grade I I without evidence for placenta previa or abruption. Amniotic fluid volume is normal. Cervix measures 4.0 cm in length and appears closed. No evidence for nuchal cord. Gestational age by LMP 24 weeks 4 days with MAG 07/16/2019 . Gestational age by current measurements 29 weeks 0 days with MAG is 06/15/2019. FHR equals 130 beats per minute. BPD 7.4 cm 29 weeks 3 days HC 28.6 cm 31 weeks 3 days AC 25.2 cm 29 weeks 3 days FL 5.0 cm 27 weeks 0 days HL 4.6 cm 27 weeks 3 days HC/AC ratio 1.13 Estimated weight 1308 grams ( 42nd percentile based on age by current measurements and first ultrasound ). Anatomical assessment is unremarkable. Amniotic fluid index: 14.6 cm (9.2 - 23.1) Impression: 1. Single live intrauterine in breech presentation demonstrating appropriate interval growth when compared to age by first ultrasound. Electronically Signed by Zack Mcnamara MD 03/31/2019 02:52 A
== END ==
LOC: M RAD 11:52
PROVIDERS: ATTEND Obstetrics & Gynecology
DX: O26.843 Uterine size-date discrepancy, third trimester (principal); O32.1XX0 Maternal care for breech presentation, not applicable or unspecified; Z3A.34 34 weeks gestation of pregnancy

== ENCOUNTER 2019-04-29 08:12 | Inpatient (IN) | payer OTHER ==
[2019-04-29] VITALS (12 sets, daily range): BP systolic 91–166; BP diastolic 56–88
[~2019-04-29] VITALS: Ht 170.2 cm; Wt 59.0 kg
[~2019-04-29 08:12] MED LIST changes: -EXCETAB33 PO; -IBUP1TAB7 PO; -PERC7.5T11 PO
[2019-04-29] MEDS ORDERED: OXYTOCIN 30 UNITS IN 0.9% NaCl 500ML IV BAG (J2590) As Ordered ONE (08:17)
[2019-04-29 09:03] LABS: HEMATOCRIT 38.3 % (36.0-47.0); HEMOGLOBIN 12.9 g/dl (12.0-15.5); MEAN CORPUSCULAR HEMOGLOBIN 32.4 pg (27.0-33.0); MEAN CORPUSCULAR HGB CONC 33.7 g/dl (32.0-36.5); MEAN CORPUSCULAR VOLUME 96.2 fl (80.0-96.0); PLATELET COUNT, AUTOMATED 213 10^3/uL (150-450); RED BLOOD COUNT 3.98 10^6/uL (4.00-5.40); WHITE BLOOD COUNT 12.8 10^3/uL (4.0-10.0)
[2019-04-29] MEDS ORDERED: OXYTOCIN DRIP 30 UNITS in IV 1 EA IV SCH (09:05)
[2019-04-29] MEDS ORDERED: ANUSOL HC CREAM 30GM TOP PRN (09:15)
[2019-04-29] MEDS ORDERED: RHOGAM 300 MCG (1500 IU) INJ (J2790) IM SCH (09:15)
[2019-04-29] MEDS ORDERED: MEASLES,MUMPS,RUBELLA VACCINE INJ (MMR-II) (90707) SC SCH (09:15)
[2019-04-29] MEDS: KETOROLAC 30 MG/ML VIAL (J1885) IV SCH ×4 (09:21→22:12)
[2019-04-29] MEDS ORDERED: ONDANSETRON 4MG/2ML VIAL (J2405) IV PRN (09:30)
--- NOTE | 2019-04-29 09:36 | HPE ---
DATE OF ADMISSION: 04/29/2019 HISTORY OF PRESENT ILLNESS: Miss Florentino is a 29-year-old 3, now para 3 who presented after having a vaginal delivery of a male . The patient reports having contractions that started at approximately at 4:00 a.m. this morning that were mild in nature and then increased in intensity. Ambulance was called and en route to the hospital her water broke and she delivered the live born male at 0757 hours. Once at the hospital, she was assessed. Her placenta was delivered grossly intact. Cervix, vagina and perineum was inspected and noted to be intact and hemostatic. Her estimated blood loss was 100 mL. Time of placenta was at 0857 hours. Her course has been remarkable for a history of two prior deliveries at 35 weeks. She was counseled on progesterone therapy for her history, but due to insurance issues she was never started on progesterone therapy. course was also complicated by a history of hyperemesis, hyperthyroidism. PAST MEDICAL HISTORY: Depression. PAST SURGICAL HISTORY: None. PAST OBSTETRICAL HISTORY: She is 3, now para 3. She has all three vaginal deliveries . SOCIAL HISTORY: She is a smoker but denies any alcohol or drug use. PHYSICAL EXAMINATION: Vital signs stable. She is afebrile. General appearance: She is well appearing in no acute distress. Abdomen is soft. Fundus is 2 cm below the umbilicus. Placenta was delivered grossly intact. Cervix, vagina and perineum was intact and no lacerations. LABS: Blood type is O positive. Antibody screen is negative. Rubella is immune. RPR is nonreactive. Hepatitis surface antigen negative. HIV is negative. Hep C is nonreactive. Chlamydia and gonorrhea screens negative. She had a normal 1 hour Glucola. ASSESSMENT Miss Florentino is a 29-year-old 3 now para 3 status post vaginal delivery en route to the hospital, currently stable. PLAN: Plan is admit and manage her care.
[2019-04-29] MEDS: PRENATAL VITAMINS CHEWABLE TABLET PO SCH (10:09)
[2019-04-29 16:05] LABS: AMPHETAMINES URINE REFLEX NEGATIVE (NEGATIVE); BARBITURATES URINE REFLEX NEGATIVE (NEGATIVE); BENZODIAZEPINES URINE REFLEX NEGATIVE (NEGATIVE); COCAINE METABOLITE URINE REFLE NEGATIVE (NEGATIVE); METHADONE URINE REFLEX NEGATIVE (NEGATIVE); PHENCYCLIDINE URINE REFLEX NEGATIVE (NEGATIVE)
[2019-04-29] MEDS: ACETAMINOPHEN 500 MG TAB PO PRN (19:28)
[2019-04-29 19:29] LABS: CANNABINOIDS URINE REFLEX PENDING CONFIRMATION (NEGATIVE); OPIATES URINE REFLEX PENDING CONFIRMATION (NEGATIVE)
[2019-04-30] MEDS: KETOROLAC 30 MG/ML VIAL (J1885) IV SCH ×2 (03:30→03:57)
[2019-04-30] MEDS: ACETAMINOPHEN 500 MG TAB PO PRN ×2 (04:09→09:40)
[2019-04-30 06:19] VITALS: BP 85/52
[2019-04-30 06:24] VITALS: BP 92/58
[2019-04-30] MEDS ORDERED: IBUPROFEN 800 MG TAB PO PRN (07:30)
[2019-04-30] MEDS: PRENATAL VITAMINS CHEWABLE TABLET PO SCH (07:37)
[2019-04-30] MEDS ORDERED: ONDANSETRON 4 MG TAB (S0181) PO PRN (14:00)
[2019-04-30 18:00] VITALS: BP 126/65
[2019-04-30] MEDS ORDERED: CALCIUM CARBONATE 500 MG CHEW U/D PO PRN (18:30)
[2019-05-01 06:00] VITALS: BP 115/64
[2019-05-01] MEDS: PRENATAL VITAMINS CHEWABLE TABLET PO SCH (08:21)
== END 2019-05-01 08:30 | disposition home or self-care (01) | DRG 544 ==
LOC: M LDI 08:12 → M OBS 12:03
PROVIDERS: ADMIT Obstetrics & Gynecology; ATTEND Obstetrics & Gynecology
PROC: 10D17ZZ Extraction of Products of Conception, Retained, Via Natural or Artificial Opening (ICD-10-PCS; principal; 2019-04-29)
DX: Z39.0 Encounter for care and examination of mother immediately after delivery (principal)

== ENCOUNTER 2019-06-13 10:17 | Day surgery (SDC) | payer OTHER ==
[~2019-06-13] VITALS: Ht 170.2 cm; Wt 51.9 kg
[~2019-06-13 10:17] MED LIST changes: +EXCETAB33 PO; +KETOROLAC 60 MG/2 ML VIAL (J1885) As Ordered ONE; +LIDOCAINE 2% INJ 100 MG/5 ML SDV (FOR ANES.) As Ordered ONE; +LR 1,000 ML IV ONE; +ONDANSETRON 4MG/2ML VIAL (J2405) As Ordered ONE; +PROPOFOL 200 MG/20 ML VIAL As Ordered ONE; +ROCURONIUM BROMIDE 50 MG/5 ML VIAL As Ordered ONE; +dexameTHASONE 4 MG/ML 1ML VIAL (J1100) As Ordered ONE
[2019-06-13] MEDS ORDERED: MIDAZOLAM INJ 2 MG/2 ML VIAL (J2250) As Ordered ONE (10:32)
[2019-06-13] MEDS ORDERED: fentaNYL 250 MCG/5 ML INJECTION (J3010) As Ordered ONE (10:32)
[2019-06-13] MEDS ORDERED: BUPIVACAINE HCL 0.25% 30 ML VIAL As Ordered ONE (10:47)
[2019-06-13 10:49] LABS: HEMATOCRIT 41.7 % (36.0-47.0); HEMOGLOBIN 13.2 g/dl (12.0-15.5); MEAN CORPUSCULAR HEMOGLOBIN 31.3 pg (27.0-33.0); MEAN CORPUSCULAR HGB CONC 31.7 g/dl (32.0-36.5); MEAN CORPUSCULAR VOLUME 98.8 fl (80.0-96.0); PLATELET COUNT, AUTOMATED 182 10^3/uL (150-450); RED BLOOD COUNT 4.22 10^6/uL (4.00-5.40); WHITE BLOOD COUNT 7.6 10^3/uL (4.0-10.0)
[2019-06-13] MEDS ORDERED: SUGAMMADEX SODIUM 500 MG/5 ML VIAL (BRIDION) As Ordered ONE (11:37)
[2019-06-13] MEDS ORDERED: fentaNYL 100 MCG/2 ML INJECTION (J3010) As Ordered ONE (12:28)
[2019-06-13] MEDS: fentaNYL 100 MCG/2 ML INJECTION (J3010) IV PRN ×4 (12:29→12:52)
[2019-06-13] MEDS ORDERED: oxyCODONE 5MG TAB As Ordered ONE (12:38)
[2019-06-13] MEDS ORDERED: LR 1,000 ML IV SCH (12:45)
[2019-06-13] MEDS ORDERED: METOCLOPRAMIDE INJ 10MG/2ML VIAL (J2765) IV PRN (12:45)
[2019-06-13] MEDS: oxyCODONE 5MG TAB PO PRN ×2 (12:45→13:15)
[2019-06-13] MEDS ORDERED: ONDANSETRON 4MG/2ML VIAL (J2405) IV PRN (12:45)
[2019-06-13] MEDS ORDERED: PERCOCET 5MG/325MG TAB PO PRN (13:46)
[2019-06-13] MEDS ORDERED: IBUP1TAB7 PO (14:20)
[2019-06-13] MEDS ORDERED: PERC7.5T11 PO (14:21)
[2019-06-13 14:40] VITALS: BP 105/61
--- NOTE | 2019-06-13 16:09 | ROOPDOC ---
[facility] Report Of Operation Report of Operation DATE OF PROCEDURE: 06/13/19 PREPROCEDURE DIAGNOSES: Satisfied parity with undesired fertility. POSTPROCEDURE DIAGNOSES: Satisfied parity with undesired fertility. PROCEDURE: Diagnostic operative laparoscopy with bilateral salpingectomy for purpose of tubal ligation. SURGEON: Yael Flor MD EXTRACTOR AND WRINGER OPERATOR: None ANESTHESIA: General endotracheal anesthesia. INTRAVENOUS FLUIDS: 450 mL of lactated Ringer's solution. ESTIMATED BLOOD LOSS: Approximately 5 mL. URINE OUTPUT: 200 mL. PREOPERATIVE ANTIBIOTICS: None. SPECIMENS: Bilateral fallopian tubes. COMPLICATIONS: None OPERATIVE FINDINGS: Patient with normal appearing uterus, bilateral adnexa. Appendix was visualized, appeared to be normal. DESCRIPTION OF PROCEDURE: After informed consent was obtained and written consent was reviewed, the patient was brought to the operating room where she was placed under general endotracheal anesthesia. She was then placed in the lithotomy position. She was prepped and draped in a normal sterile fashion. A time-out in the operating room was then performed identifying the patient, procedure to be performed, as well as drug allergies. Chinle speculum was then placed revealing the cervix. The anterior lip of the cervix was grasped with a single-tooth tenaculum. A Hulka tenaculum was then advanced through the cervical os for a means to manipulate the uterus. Single-tooth tenaculum as well as the speculum was removed. Dukes catheter was then placed and set to gravity. Gloves were changed. Attention was turned to the patient's abdomen where 0.25% Marcaine was infused in umbilical region. This area was incised and a 5 mm trocar and sleeve was advanced through this incision. The laparoscope was then replaced revealing intraabdominal placement. Pneumoperitoneum was then obtained with CO2 gas. The abdomen was then surveyed with the above-noted findings. Two additional port sites were placed. One port site was placed 2 cm above the pubis symphysis in the midline. This area was infused with 0.25% Marcaine. An incision was made in this area and 8 mm trocar and sleeve was advanced through this incision under direct visualization. A second accessory port was placed left side of the patient's abdomen. This area was infused with 0.25% Marcaine. A 5 mm trocar and sleeve was advanced through this incision under direct visualization. Next, the right fallopian tube was then placed on traction. Using Harmonic Bhupinder scalpel device, the mesosalpinx was dissected underneath the fallopian tube and was transected at the level of the uterus. Specimen was then brought out the port site. In a similar fashion, left fallopian tube was dissected along the left mesosalpinx underneath the fallopian tube and transected at the level of the uterus. The specimen was removed. Surgical sites were inspected and noted to be hemostatic. Pneumoperitoneum was then released and port sites were then closed with #4-0 Monocryl and was dressed with Dermabond. Dukes catheter as well as a Hulka tenaculum was removed. The patient was then taken out of the lithotomy position, was awakened from general anesthesia and taken to recovery i n stable condition. Counts were correct. . YAEL FLOR MD. Jun 13, 2019 16:08
[2019-06-13] MEDS ORDERED: KETOROLAC 30 MG/ML VIAL (J1885) IV SCH (18:00)
== END 2019-06-13 14:40 | disposition home or self-care (01) ==
LOC: M SDC 10:17
PROVIDERS: ATTEND Obstetrics & Gynecology
DX: Z30.2 Encounter for sterilization (principal); F17.218 Nicotine dependence, cigarettes, with other nicotine-induced disorders
CPT/HCPCS: 36415; 58661; 81025; 85027; 86850; 86900; 86901; 88302; J1100; J1885; J2250; J2405; J3010